=== PATIENT | female | born 1955 | race Caucasian/White ===

== ENCOUNTER 2017-04-01 14:04 | Emergency (ER) | payer OTHER ==
[~2017-04-01] VITALS: Ht 162.6 cm; Wt 64.0 kg
[~2017-04-01 14:04] MED LIST: ACYC1CAP16 PO; B-1210005 PO; CALC500T21 PO; CYMB30CA PO; FLAG500T PO; LEVA500T PO; LORTA5 PO; PROT40TA PO; TAB-TAB PO; TYLE3 PO; VALI10TA PO; ZOFR4TAB3 SL
[2017-04-01 14:09] VITALS: BP 125/60; PULSE 81; RESP 16; TEMP 97.4; O2SAT 98
[2017-04-01] MEDS ORDERED: CYMB60CA PO (14:17)
[2017-04-01] MEDS ORDERED: ESTR0.5T PO (14:17)
[2017-04-01] MEDS ORDERED: PROG100C PO (14:17)
[2017-04-01] MEDS ORDERED: PANT40TA3 PO (14:17)
[2017-04-01] MEDS ORDERED: VITA10002 PO (14:17)
[2017-04-01] MEDS ORDERED: CALC1TAB12 PO (14:17)
--- NOTE | 2017-04-01 14:45 | PD ---
HPI Chief Complaint: ENT Complaint Time Seen by Provider: 14:35 Travel History International Travel<30 days: No Contact w/Intl Traveler<30days: No Traveled to known affect area: No History of Present Illness HPI 62-year-old female presents to emergency department complaining of nonproductive cough, clear rhinorrhea, subjective fever, and sore throat since Friday. Patient states that she has sick grandchildren at home and believes that she may pick something up from them. Denies nausea, vomiting or diarrhea. Denies neck discomfort. Patient has a history of tonsillectomy. Patient isn' t used any medications at the counter. PFSH Past Medical History Depression: Yes Cancer: No Cardiovascular Problems: No Chemotherapy: No Cerebrovascular Accident: No Diabetes: No Diminished Hearing: No Endocrine: No Gastrointestinal Disorders: No Genitourinary: No Hepatitis: No Hiatal Hernia: No Immune Disorder: No Musculoskeletal: Yes (ARTHRITIS) Neurologic: No Psychiatric: No Reproductive: No Respiratory: No Immunizations Current: Yes Thyroid Disease: No Tetanus Vaccination: Unknown Influenza Vaccination: Yes ?: Not Menopausal: Yes Tubal Ligation: Yes Past Surgical History Abdominal Surgery: Yes ([employer] HERNIA WITH MESH, gastric sleeve BARIATRIC SURGERY) AICD: No Body Medical Devices: NONE Cardiac Surgery: No Section: Yes Cholecystectomy: Yes (1966) Ear Surgery: No Endocrine Surgery: No Eye Surgery: No Genitourinary Surgery: No Gynecologic Surgery: Yes (2 C-SECT, TUBAL LIG., ENDOMETRIAL CYST.) Joint Replacement: No Pacemaker: No Other Surgery: Yes Social History Alcohol Use: No Tobacco Use: No Substance Use: No Allergies-Medications (Allergen,Severity, Reaction): Coded Allergies: amoxicillin (Unverified Allergy, Severe, RASH, 04/01/17) clavulanic acid (Unverified Allergy, Severe, RASH, 04/01/17) latex (Unverified Allergy, Severe, HANDS BREAK OUT, 04/01/17) Sulfa (Sulfonamide Antibiotics) (Unverified Allergy, Mild, RASH, 04/01/17) Reported Meds & Prescriptions Reported Meds & Active Scripts Active Reported Vitamin B-12 (Cyanocobalamin) 1,000 Mcg Tab 1,000 Mcg PO DAILY Calcium 500 +D (Calcium Carbonate-Cholecalciferol) 500-400 Mg-Unit Tab 1 Tab PO DAILY Cymbalta DR (Duloxetine HCl) 60 Mg Capdr 60 Mg PO DAILY Progesterone Micronized 100 Mg Cap 100 Mg PO DAILY Estradiol 0.5 Mg Tab 0.5 Mg PO DAILY Pantoprazole (Pantoprazole Sodium) 40 Mg Tab 40 Mg PO DAILY Review of Systems Except as stated in HPI: all other systems reviewed are Neg Physical Exam Narrative GENERAL: Well-nourished, well-developed patient. SKIN: Focused skin assessment warm/dry. HEAD: Normocephalic. EYES: No scleral icterus. No injection or drainage. NECK: Supple, trachea midline. No JVD or lymphadenopathy. THROAT: No pharyngeal injection, exudates. Airway is patent. Postnasal drip present CARDIOVASCULAR: Regular rate and rhythm without murmurs, gallops, or rubs. RESPIRATORY: Breath sounds equal bilaterally. No accessory muscle use. GASTROINTESTINAL: Abdomen soft, non-tender, nondistended. MUSCULOSKELETAL: No cyanosis, or edema. BACK: Nontender without obvious deformity. No CVA tenderness. Data Data Last Documented VS Vital Signs Date Time Temp Pulse Resp B/P (MAP) Pulse Ox O2 Delivery O2 Flow Rate FiO2 04/01/17 14:09 97.4 81 16 125/60 (81) 98 MDM Medical Decision Making Medical Screen Exam Complete: Yes Emergency Medical Condition: Yes Differential Diagnosis Viral syndrome, upper respiratory infection, strep pharyngitis, viral pharyngitis Narrative Course 49-year-old female presents to emergency department with laceration to the left upper forehead after being hit in the forehead with a golf club today. Patient states that he was teaching his grandson held to the cough when he hit in the head with a wedge. Patient states that he did see stars" and currently has a "pounding headache" rated as moderate and constant.. Patient denies blurred vision, neck pain, back pain, loss of consciousness. Patient denies chronic medical issues or chronic medication use. Vital signs stable Physical exam findings consistent with a viral pharyngitis with upper respiratory infection. Advised that she simply needs symptomatic relief. Centor criteria not met for strep pharyngitis. Advised to follow up with primary care physician within 2-3 days. Return to the emergency department for worsening or persistent symptoms. Diagnosis Primary Impression: Upper respiratory infection Qualified Codes: J06.9 - Acute upper respiratory infection, unspecified; B97.89 - Other viral agents as the cause of diseases classified elsewhere Referrals: Primary Care Physician Additional Instructions: You may use Tylenol or Motrin per package instructions for body aches and pains. Consider Zyrtec, Patricia, or Claritin for nasal drip. Use nasal saline for your congestion. Follow up with your primary care physician within 2-3 days. If your symptoms persist or worsen, return to the emergency department. Disposition: 01 DISCHARGE HOME Condition: Stable Liliana Murphy Apr 01, 2017 14:45
== END 2017-04-01 14:53 | disposition home or self-care (01) ==
LOC: PHEFT 14:04
DX: J06.9 Acute upper respiratory infection, unspecified (principal); M19.90 Unspecified osteoarthritis, unspecified site; Z88.0 Allergy status to penicillin; Z88.2 Allergy status to sulfonamides
CPT/HCPCS: 99282